=== PATIENT | male | born 1945 | race Caucasian/White ===

== ENCOUNTER 2019-06-27 16:00 | Observation (INO) ==
[2019-06-27] MEDS ORDERED: IOPAMIDOL 100 ML BOTTLE IV ONE (16:01)
[2019-06-27] MEDS ORDERED: 0.9 % SODIUM CHLORIDE 1,000 ML IV ONE (16:46)
[2019-06-27] MEDS ORDERED: ONDANSETRON 4 MG/2 ML VIAL IV ONE ×2 (16:46→18:28)
--- NOTE | 2019-06-27 16:51 | Emergency Department Note ---
GI Bleed HPI - General Chief complaint: Rectal Bleed Stated complaint: bleeding Time Seen by Provider: 06/27/19 16:12 Source: patient Mode of arrival: ambulatory Limitations: no limitations - History of Present Illness HPI Narrative: 74-year-old male patient presents emergency department with chief complaint of worsening left-sided flank and lower quadrant abdominal pain and black tarry stools. Patient tells me he woke up this morning with the pain. He had bowel movement this morning that looked as if there is blood in it. He was seen at [facility] around 1100 today for the symptoms. He tells me that the provider there did an exam and did a stool guaiac test that was positive. They did some blood work and recommended a CT scan for tomorrow. A review of the blood work from [facility] indicates a CBC showed WBC 9.3, RBC 5.07, hemoglobin 16.0, hematocrit 45.80, neutrophil percent 72.6 neutrophil #6.76. CMP sodium 132, chloride 94, anion gap 15.4, glucose 103, BUN 24, creatinine 1.03, GFR greater than 60, all others normal limits. Urinalysis showing clear yellow urine with specific gravity of 1.010 and pH 6.0. Negative all others. Patient tells me he came to the emergency department because the pain has signi ficantly worsened. He admits to nausea but no vomiting. He denies any fever, sweats, chills. He denies sinus congestion, runny nose, or cough. He denies shortness of breath. He denies retrosternal chest pain or palpitations. He denies gross hematochezia, hematemesis, or hematuria. He denies dysuria. He denies focal weakness. He admits to a past history of diverticulosis. A review of his active problems shows the following: Pharyngitis, sinusitis, hyponatremia, diverticulitis, hyperlipidemia, hypogonadism, and essential hypertension. Patient underwent right knee arthroplasty in March of this year. Unfortunately, in April he developed a surgical wound infection and had to undergo surgery again for debridement. - Related Data Home Medications Medication Instructions Recorded Confirmed Aspirin [Adult Low Dose Aspirin EC] 81 mg PO DAILY 10/02/16 07/08/17 Atorvastatin [Lipitor] 40 mg PO HS 10/02/16 07/08/17 Simvastatin [Zocor] 20 mg PO HS 10/02/16 07/08/17 carBAMazepine [TEGretol] 200 mg PO BID 10/02/16 07/08/17 Metoprolol Succinate [Toprol Xl] 50 mg PO DAILY 07/08/17 07/08/17 Testosterone Cypionate [Testone 200 mg IM .TWOWEEKS 07/08/17 07/08/17 Cik] Previous Rx's Medication Instructions Recorded Cefuroxime [Ceftin] 500 mg PO Q12 #28 tablet 10/16/16 Levofloxacin [Levaquin] 500 mg PO DAILY #10 tab 03/09/18 metroNIDAZOLE [Flagyl] 500 mg PO TID #30 tab 03/09/18 Allergies Allergy/AdvReac Type Severity Reaction Status Date / Time amlodipine [From [facility]] Allergy Intermediate COUGH, RASH Verified 06/27/19 16:08 lisinopril Allergy Swelling Verified 06/27/19 16:08 of Lip/Tongue/Throat Review of Systems All systems ED: reviewed and negative except as stated. Past Medical History - Past Medical History Medical history: Reports: arthritis, hyperlipidemia, hypertension, seizures, other (history of sleep apnea, hypogonadism) Psychiatric history: Reports: no psych history Surgical history ED: Reports: appendectomy, hip replacement, knee replacement, orthopedic, other (shoulder surgery), tonsillectomy - Social History smoking status: Former smoker Alcohol use: Reports: Occasionally (he states beers every other day) Drug use: Reports: none Physical Exam Limitations: no limitations General appearance: alert, in no apparent distress Head: atraumatic, normocephalic Eye: Present: normal appearance, PERRL, EOMI. Absent: scleral icterus, conjunctival injection ENT: Present: normal oropharynx, mucous membranes moist Neck: Present: trachea midline. Absent: lymphadenopathy, thyromegaly Chest: Present: symmetric chest wall rise Respiratory: Present: normal lung sounds bilaterally. Absent: respiratory distress, wheezes, stridor, accessory muscle use, prolonged expiratory phase Cardiovascular: Present: regular rate, normal rhythm. Absent: systolic murmur, diastolic murmur Abdominal: Present: soft, tenderness, guarding, rigidity, hyperactive bowel sounds. Absent: distention, rebound, organomegaly, mass Abdominal tenderness: Present: LUQ, LLQ, severe, other (Left flank pain.) Rectal: Present: normal inspection, normal rectal tone, heme (+) stool, black stool. Absent: normal prostate Extremities: Present: normal inspection, full ROM, normal capillary refill. Absent: pedal edema Back: Present: full ROM, CVA tenderness (L). Absent: tenderness, CVA tenderness (R) Neurological: Present: alert, oriented X3 Psychiatric: Present: normal affect, normal mood Skin: Present: warm, dry Course Course Narrative: Patient was brought into the emergency department and a history and physical e xam was performed. Saline lock was established and laboratory studies were drawn. CT scan of the abdomen/pelvis with contrast was ordered. Patient was given Zofran 4mg IVP for his nausea. Review of his laboratory studies show the following: CBC within normal limits. CMP sodium 127, chloride 90, all others in normal limits. CT scan of the abdomen/pelvis was read by the radiologist as negative study. Patient again complained of ongoing nausea was given repeat Zofran 4 mg IVP. After reviewing all the data the patient does have ongoing abdominal pain and guaiac positive stools. However, he has a stable H&H and no considerable finding on CT scan. I discussed the case with our general surgeon (Dr. Espitia) requesting his guidance about possible endoscopy for further work-up. At this time Dr. Espitia requested the patient be admitted to observation under his service. He recommended clear liquid diet, pain control, something for nausea, and that he would follow him closely in the morning. These holding orders will be placed by me. All further treatment decisions and modalities afterward will be carried out by . Patient remained stable throughout his entire time in the emergency department and is being admitted as mentioned. Vital Signs Temperature 97.9 F 06/27/19 16:05 Pulse Rate 97 H 06/27/19 16:05 Respiratory Rate 18 06/27/19 16:05 Blood Pressure 149/72 06/27/19 16:05 Pulse Oximetry (%) 100 06/27/19 16:05 Temperature 97.9 F 06/27/19 16:05 Pulse Rate 97 H 06/27/19 16:05 Respiratory Rate 18 06/27/19 16:05 Blood Pressure 149/72 06/27/19 16:05 Pulse Oximetry (%) 100 06/27/19 16:05 GI Bleed - Lab Data Lab results reviewed: Yes I reviewed the patient's lab results. Result diagrams: 06/27/19 16:54 06/27/19 16:54 Lab Results 06/27/19 06/27/19 Range/Units 16:54 16:54 WBC 8.4 (4.5-11.0) K/mcL RBC 4.63 (4.50-5.90) M/mcL Hgb 14.6 (13.5-16.5) g/dL Hct 43.3 (41.0-55.0) % MCV 93.6 (80.0-100.0) fL MCH 31.6 (26.0-34.0) pg MCHC 33.7 (31.0-36.0) g/dL RDW 12.9 (11.5-14.5) % Plt Count 255 (140-440) K/mcL MPV 7.5 (7.4-10.4) fL Gran % 77.7 (38.0-78.0) % Lymph % (Auto) 10.8 L (15.5-49.0) % Mobile % (Auto) 10.5 (1.0-12.0) % Eos % (Auto) 0.5 (0.0-7.0) % Baso % (Auto) 0.5 (0.0-2.0) % Gran # 6.5 (1.8-8.0) K/mcL Lymph # (Auto) 0.9 L (1.5-4.8) K/mcL Mobile # (Auto) 0.9 (0.1-0.9) K/mcL Eos # (Auto) 0 (0.0-0.7) K/mcL Baso # (Auto) 0 (0.0-0.3) K/mcL Sodium 127 L (133-145) mmol/L Potassium 4.7 (3.3-5.1) mmol/L Chloride 90 L (96-108) mmol/L Carbon Dioxide 24 (22-30) mmol/L Anion Gap 13.0 (8-16) BUN 23 (8-23) mg/dl Creatinine 0.9 (0.7-1.2) mg/dl GFR Calculation 83 Glucose 104 (70-105) mg/dL Calcium 9.2 (8.6-10.4) mg/dl Total Bilirubin 0.3 (0.0-1.0) mg/dL AST 17 (0-37) U/l ALT 17 (0-40) U/l Alkaline Phosphatase 69 (39-117) U/L Total Protein 6.8 (5.9-8.4) gm/dL Albumin 4.2 (3.2-5.2) gm/dL Globulin 2.6 (2.2-3.7) gm/dL Albumin/Globulin Ratio 1.6 (1.0-2.3) - Radiology Data Radiology results reviewed: Yes I reviewed the patient's radiology results. CT scan read by the radiologist as a negative study. Disposition Pt seen by HOUSING OFFICER/PA only: Yes Clinical Impression: GI bleed, Hyponatremia Disposition: Xfer As Outpt/Obs ([facility]) Condition: Fair Additional Instructions: Patient is being admitted to observation in the hospital under the care of Dr. Espitia (general surgeon). I will place the holding orders and then all further treatment decisions and modalities will be carried out by Dr. Espitia. Referrals: Chad Mahoney DO [Primary Care Provider] - Time of Disposition: 19:14
[2019-06-27 17:21] LABS: Basophils # (Auto) 0 K/mcL (0.0-0.3); Basophils % (Auto) 0.5 % (0.0-2.0); Eosinophils # (Auto) 0 K/mcL (0.0-0.7); Eosinophils % (Auto) 0.5 % (0.0-7.0); Granulocytes % (Auto) 77.7 % (38.0-78.0); Hematocrit 43.3 % (41.0-55.0); Hemoglobin 14.6 g/dL (13.5-16.5); Lymphocytes # (Auto) 0.9 K/mcL (1.5-4.8); Lymphocytes % (Auto) 10.8 % (15.5-49.0); Mean Cell Volume 93.6 fL (80.0-100.0); Mean Corpuscular HGB Conc 33.7 g/dL (31.0-36.0); Mean Platelet Volume 7.5 fL (7.4-10.4); Monocytes # (Auto) 0.9 K/mcL (0.1-0.9); Monocytes % (Auto) 10.5 % (1.0-12.0); Platelet Count 255 K/mcL (140-440); RBC 4.63 M/mcL (4.50-5.90); Red Cell Distribution Width 12.9 % (11.5-14.5); WBC 8.4 K/mcL (4.5-11.0)
[2019-06-27 17:52] LABS: ALT/SGPT 17 U/l (0-40); AST/SGOT 17 U/l (0-37); Albumin 4.2 gm/dL (3.2-5.2); Albumin/Globulin Ratio 1.6 (1.0-2.3); Alkaline Phosphatase 69 U/L (39-117); Bilirubin,Total 0.3 mg/dL (0.0-1.0); Blood Urea Nitrogen 23 mg/dl (8-23); Calcium 9.2 mg/dl (8.6-10.4); Carbon Dioxide 24 mmol/L (22-30); Globulin 2.6 gm/dL (2.2-3.7); Glomerular Filtration Rate 83; Glucose 104 mg/dL (70-105)
[2019-06-27 18:02] LABS: Chloride 90 mmol/L (96-108)
[2019-06-27] MEDS ORDERED: ACETAMINOPHEN 325 MG TABLET PO PRN (19:14)
--- NOTE | 2019-06-27 20:33 | Cat Scan Report ---
CLINICAL INFORMATION: Left-sided abdominal pain. Gastrointestinal bleeding COMPARISON: Previous CT scans dated 03/09/2018, 02/21/2013, 02/10/2013 TECHNIQUE: Axial images were obtained through the abdomen and pelvis. Sagittally and coronally reformatted images. 80 mL Isovue 370 injected intravenously. Oral contrast material was not administered FINDINGS: Lung bases:Negative. No pulmonary parenchymal infiltrate or mass. No focal abnormality. There is no pleural fluid. No pericardial fluid. There is coronary artery calcification with calcified plaque in the left main and left anterior descending coronary arteries. Liver:No significant abnormality. There are 2 low-density abnormalities which appear benign. These measure 6 mm and 9 mm. These are probably small cysts. No other focal intrahepatic abnormality. Liver contour is smooth. There is no ascites Gallbladder, billary:Negative gallbladder. No calcified gallstones. No gallbladder wall thickening. No intra or extrahepatic bile duct dilatation Spleen:Negative. No splenomegaly. Normal enhancement splenic and portal vein Pancreas:Negative. No pancreatic mass. No peripancreatic abnormality. Adrenal glands:Negative Kidneys, ureters, bladder:Negative kidneys. No hydronephrosis. No solid or cystic mass. No calculi. No hydroureter. No ureteral stone. No bladder calculus Gastrointestinal:Extensive sigmoid diverticulosis. No diverticulitis. No detectable colonic mass. Negative examination for appendicitis. Patient apparently has gastrointestinal bleeding. There is no contrast extravasation within the colon. No contrast pooling. Small bowel is negative. No mechanical small bowel obstruction. Vascular:There is calcified atherosclerotic plaque in the abdominal aorta and common iliac arteries. No abdominal aortic aneurysm. There is calcified plaque at the origin of the superior mesenteric artery and celiac trunk. No evidence for stenosis. There is calcification at the origin of both renal arteries. Stenosis is possible. Lymphatic:No retroperitoneal or mesenteric adenopathy. No inguinal adenopathy Mesentery, peritoneum:No free intraperitoneal fluid. No intra-abdominal abscess Reproductive:Prostate is not significantly enlarged Musculoskeletal:Severe multilevel degenerative disc disease. There is L5-S1 spondylolisthesis and bilateral spondylolysis. No sacral or pelvic fracture. Right hip is negative. Previous left total hip arthroplasty. Examination was initially interpreted by [facility] IMPRESSION: 1. Extensive diverticulosis. No evidence for diverticulitis. No detectable colonic mass or active hemorrhage 2. Atherosclerotic disease including calcified coronary artery disease 3. Multilevel degenerative disc disease. L5 spondylolysis and L5-S1 spondylolisthesis The exam was performed using radiation dose optimization techniques including, but not limited to, automated exposure control, adjustment of the mA and/or kV according to patient size and use of iterative reconstruction technique. Interpreted and Authenticated by: Jignesh Fishman 06/27/19
[2019-06-27] MEDS: ONDANSETRON 4 MG/2 ML VIAL IV PRN (21:57)
[2019-06-27] MEDS: HYDROmorphone 2 MG/ML VIAL IV PRN (21:57)
[2019-06-27] MEDS: 0.9 % SODIUM CHLORIDE 10 ML SYRINGE IV SCH (21:58)
--- NOTE | 2019-06-28 00:50 | Emergency Department Note ---
ED Note Addendum Note Addendum: I reviewed this case of John Castro PA-C. I agree with his evaluation management documentation. I did not see this patient personally but I did discuss management with him and agree with decision to admit and consult Dr. Espitia
[2019-06-28] MEDS: HYDROmorphone 2 MG/ML VIAL IV PRN ×6 (01:31→20:27)
[2019-06-28] MEDS: ONDANSETRON 4 MG/2 ML VIAL IV PRN (04:16)
[2019-06-28 05:19] LABS: Basophils # (Auto) 0 K/mcL (0.0-0.3); Basophils % (Auto) 0.3 % (0.0-2.0); Eosinophils # (Auto) 0 K/mcL (0.0-0.7); Eosinophils % (Auto) 0.4 % (0.0-7.0); Hemoglobin 12.8 g/dL (13.5-16.5); Lymphocytes # (Auto) 0.8 K/mcL (1.5-4.8); Lymphocytes % (Auto) 11.7 % (15.5-49.0); Mean Cell Volume 94.9 fL (80.0-100.0); Mean Corpuscular HGB Conc 33.6 g/dL (31.0-36.0); Mean Platelet Volume 7.5 fL (7.4-10.4); Monocytes # (Auto) 0.7 K/mcL (0.1-0.9); Monocytes % (Auto) 10.6 % (1.0-12.0); Platelet Count 221 K/mcL (140-440); Red Cell Distribution Width 13.5 % (11.5-14.5); WBC 7.1 K/mcL (4.5-11.0)
[2019-06-28] MEDS: 0.9 % SODIUM CHLORIDE 10 ML SYRINGE IV SCH ×3 (06:01→20:28)
--- NOTE | 2019-06-28 12:24 | General Surg History&Physical ---
History of Present Illness Patient information: Note initiated : 06/28/19 at 12:21 pm Service Date, if different from initiated Date: [] Patient: Talha Suarez 74 y/o M admitted on 06/27/19 for bleeding. Chief Complaint: [] HPI: Mr. Suarez is a 74 year old M with upper GI bleed. The patient states that he has a 4 day history of feeling weak. He also felt left flank pain with nausea but no vomiting. Yesterday he had had bowel movements. He has not had bright red rectal bleeding. He does have pain in the midabdomen quadrant. The patient states that for many months. He's been using ibuprofen up to 3 times daily daily (. rectal exam reveals black stool which is strongly guaiac positive. Patient is counseled for upper endoscopy. Review of Systems All systems PM: reviewed and no additional remarkable complaints except as stated (negative except as noted below) - Constitutional fatigue, lethargy, weakness - Respiratory cough, dyspnea on exertion, snoring - Gastrointestinal abdominal pain, melena, nausea - Musculoskeletal arthralgias, back pain - Hematologic/Lymphatic no easy bleeding, no easy bruising, no lymphadenopathy - Allergic/Immunologic no tongue swelling, no throat swelling, no uticaria, no wheezing, no lip swelling Past History Past medical history: History , petit mal seizures remote Hypertension. Sleep apnea with use Hyponatremia. History of diverticulitis Past surgical history: Appendectomy. Left total hip arthroplasty. Right total shoulder arthroplasty. Right total knee arthroplasty Past family history: C stage LXVII due to lymphoma. Mother due to complications of early Alzheimer's disease a 67 Past social history: Former smoker. Drinks an occasional beer. Denies drug use Medications and Allergies Home Medications Medication Instructions Recorded Confirmed Type Simvastatin [Zocor] 40 mg PO HS 10/02/16 06/27/19 History carBAMazepine [TEGretol] 200 mg PO BID 10/02/16 06/27/19 History Testosterone Cypionate [Testone 200 mg IM .TWOWEEKS 07/08/17 06/28/19 History Cik] Furosemide [Lasix] 40 mg PO DAILY 06/27/19 06/27/19 History Irbesartan [Avapro] 300 mg PO QDAY 06/27/19 06/27/19 History Allergies Allergy/AdvReac Type Severity Reaction Status Date / Time lisinopril Allergy Severe Swelling Verified 06/27/19 21:02 of Lip/Tongue/Throat amlodipine [From [facility]] AdvReac Mild COUGH, RASH Verified 06/27/19 21:02 Exam Temp Pulse Resp BP Pulse Ox 97.9 F 68 18 119/66 97 06/28/19 11:49 06/28/19 07:50 06/28/19 11:49 06/28/19 11:49 06/28/19 11:49 - General physical appearance well developed, well nourished, no distress - Eyes PERRL, normal ocular movement - ENT normal pinna, normal nares, normal mucosa, no congestion, decreased hearing, dentures, other (patient wears bilateral hearing aids) - Head Head exam IM: Present: atraumatic, normocephalic - Neck no masses, no bruits, trachea midline, no lymphadenopathy, no venous distension - Cardiovascular Cardiovascular exam IM: Present: normal rate and rhythm - Respiratory normal expansion, normal respiratory effort, clear to percussion, clear to auscultation - Abdomen Abdomen: Present: soft, tender (midepigastric abdominal tenderness; left upper quadrant), bowel sounds Hernia: Present: none - Genitourinary Present: normal penis with no external lesions - Integumentary Present: no rash, no growths, no abnormal pigmentation - Neurologic Present: normal coordination, normal sensation - Musculoskeletal Present: normal gait, normal posture - Psychiatric Present: oriented to time, oriented to person, oriented to place, speech is normal, memory intact Assessment and Plan (1) Upper gastrointestinal bleeding Patient is seen for upper endoscopy. It will be done as soon as possible Status: Acute (2) Hypertension Status: Acute (3) Obstructive sleep apnea (adult) (pediatric) Status: Acute (4) Hyponatremia Status: Acute
[2019-06-28] MEDS ORDERED: ESOMEPRAZOLE 40 MG VIAL IV SCH (12:30)
[2019-06-28] MEDS ORDERED: ONDANSETRON 4 MG/2 ML VIAL IV PRN ×3 (12:56→13:51)
[2019-06-28] MEDS ORDERED: IPRATROPIUM/ALBUTEROL 3 ML AMPUL.NEB NEB PRN ×2 (12:56→13:51)
[2019-06-28] MEDS ORDERED: PROPOFOL 200 MG/20 ML VIAL IV ONE (12:59)
[2019-06-28] MEDS ORDERED: MIDAZOLAM 2 MG/2 ML VIAL IV ONE (12:59)
[2019-06-28] MEDS ORDERED: KETAMINE 100 MG/ML ML IV ONE (12:59)
[2019-06-28] MEDS ORDERED: LACTATED RINGERS 1,000 ML IV SCH ×2 (13:00→13:51)
--- NOTE | 2019-06-28 13:30 | Brief Operative Note ---
Date of procedure: 06/28/19 Pre-op diagnosis: upper G I BLEEDING Post-op diagnosis: other (ACUTE EROSIVE GASTRITIS;MULTIPLE GASTRIC AND DUODENAL ULCERS) Procedure: EGD WITH PRIYANKA TEST Grafts/Implants: No Anesthesia: none (GENERAL) Findings: DIFFUSE INFLAMMATION OF STOMACH WITH MULTIPLE GASTRIC EROSIONS AND 3 MODERATE SIZED GASTRIC ULCERS ACUTE SEVERE DUODENITIS WITH MULTIPLE MODERATE SIZED DUODENAL ULCERS AND SINGLE GIANT DUODENAL ULCER WITH HEMORRHAGIC BASE BUT NO ACTIVE BLEEDING PARTIAL OBSTRUCTION OF DUODENAL BULB DUE TO GIANT ULCER SECOND PORTION OF DUODENUM IS NORMAL NO ACTIVE BLEEDING Complications: none Surgeon: Wilson Espitia Specimens Removed/Pathology: other (ANTRAL BIOPSIES FOR PRIYANKA TEST) Condition: stable Disposition: PACU
[2019-06-28] MEDS ORDERED: ACETAMINOPHEN 325 MG TABLET PO PRN (13:51)
[2019-06-28] MEDS: ESOMEPRAZOLE 40 MG VIAL IV SCH ×2 (16:01→23:10)
[2019-06-28] MEDS: SUCRALFATE 1 GM/10 ML ORAL.SUSP PO SCH ×2 (18:08→23:05)
[2019-06-28] MEDS: carBAMazepine 200 MG TABLET PO SCH (20:27)
[2019-06-28] MEDS ORDERED: carBAMazepine 200 MG TABLET PO SCH (21:00)
[2019-06-29] MEDS: 0.9 % SODIUM CHLORIDE 10 ML SYRINGE IV SCH ×3 (04:27→21:38)
[2019-06-29] MEDS: SUCRALFATE 1 GM/10 ML ORAL.SUSP PO SCH ×4 (05:23→23:35)
[2019-06-29 06:33] LABS: Basophils # (Auto) 0 K/mcL (0.0-0.3); Basophils % (Auto) 0.7 % (0.0-2.0); Eosinophils # (Auto) 0.2 K/mcL (0.0-0.7); Granulocytes % (Auto) 71.3 % (38.0-78.0); Hematocrit 33.7 % (41.0-55.0); Hemoglobin 11.6 g/dL (13.5-16.5); Lymphocytes % (Auto) 15.3 % (15.5-49.0); Mean Cell Volume 94.6 fL (80.0-100.0); Mean Corpuscular HGB Conc 34.4 g/dL (31.0-36.0); Mean Platelet Volume 7.7 fL (7.4-10.4); Monocytes # (Auto) 0.6 K/mcL (0.1-0.9); Monocytes % (Auto) 9.7 % (1.0-12.0); Platelet Count 176 K/mcL (140-440); RBC 3.56 M/mcL (4.50-5.90); Red Cell Distribution Width 12.9 % (11.5-14.5); WBC 6.7 K/mcL (4.5-11.0)
[2019-06-29 07:16] LABS: ALT/SGPT 16 U/l (0-40); AST/SGOT 16 U/l (0-37); Albumin 3.6 gm/dL (3.2-5.2); Albumin/Globulin Ratio 1.9 (1.0-2.3); Alkaline Phosphatase 57 U/L (39-117); Bilirubin,Direct < 0.2 mg/dL (0.0-0.3); Bilirubin,Total 0.3 mg/dL (0.0-1.0); Blood Urea Nitrogen 10 mg/dl (8-23); Calcium 8.5 mg/dl (8.6-10.4); Carbon Dioxide 25 mmol/L (22-30); Globulin 1.9 gm/dL (2.2-3.7); Glomerular Filtration Rate 92; Glucose 91 mg/dL (70-105); Lactate Dehydrogenase 137 U/L (94-250); Phosphorous 2.4 mg/dL (2.7-4.5); Triglycerides 106 mg/dl (<150); Uric Acid 5.1 mg/dL (2.5-8.0)
[2019-06-29 07:27] LABS: Chloride 94 mmol/L (96-108)
[2019-06-29] MEDS: carBAMazepine 200 MG TABLET PO SCH ×2 (08:41→20:43)
[2019-06-29] MEDS: HYDROmorphone 2 MG/ML VIAL IV PRN ×2 (08:42→15:52)
[2019-06-29] MEDS: LOSARTAN 50 MG TABLET PO SCH (08:42)
[2019-06-29] MEDS: FUROSEMIDE 40 MG TABLET PO SCH (08:42)
[2019-06-29] MEDS ORDERED: FUROSEMIDE 40 MG TABLET PO SCH (09:00)
[2019-06-29] MEDS ORDERED: IRBESARTAN 300 MG PO SCH (09:00)
[2019-06-29] MEDS: ESOMEPRAZOLE 40 MG VIAL IV SCH (10:28)
--- NOTE | 2019-06-29 12:52 | General Surgery Progress Note ---
Subjective Patient reports: feels better, tolerating liquids well, flatus, bowel movement, afebrile Narrative: Note initiated : 06/29/19 at 12:50 pm Service Date, if different from initiated Date: [] Patient: Talha Suarez 74 y/o M admitted on 06/27/19 for bleeding. Chief Complaint: [patient is well. He denies abdominal pain. He had one black stool since yesterday. His hemoglobin is slightly valve 11.6. He does not have any nausea. White count 6.7, hematocrit 33.7, sodium 129, potassium 4.3] Objective Temp Pulse Resp BP Pulse Ox 98.0 F 74 20 130/69 96 06/29/19 11:30 06/29/19 11:30 06/29/19 11:30 06/29/19 11:30 06/29/19 11:30 - Additional Data Intake & Output - Last 24 hours: Intake & Output 06/27/19 06/28/19 06/29/19 06/30/19 05:59 05:59 05:59 05:59 Intake Total 1120 840 480 Output Total 700 1175 450 Balance 420 -335 30 Weight 234 lb 234 lb - General physical appearance well developed, well nourished, no distress - Eyes PERRL, normal ocular movement - ENT normal pinna, normal nares, normal mucosa, no hearing loss, no congestion - Neck no masses, no bruits, trachea midline, no lymphadenopathy, no venous distension - Respiratory normal expansion, normal respiratory effort, clear to auscultation - Cardiovascular Cardiovascular exam: Present: normal rate and rhythm, RRR, +S1, +S2. Absent: JVD, tachycardia - Abdomen non tender, bowel sounds (present), surgical scars (none), masses (none) - Integumentary no rash, no growths, no abnormal pigmentation - Neurologic normal coordination, normal sensation - Musculoskeletal normal gait, normal posture - Psychiatric oriented to time, oriented to person, oriented to place, speech is normal, memory intact - Labs 06/29/19 04:10 06/29/19 04:10 Diabetes panel 06/29/19 Range/Units 04:10 Sodium 129 L (133-145) mmol/L Potassium 4.3 (3.3-5.1) mmol/L Chloride 94 L (96-108) mmol/L Carbon Dioxide 25 (22-30) mmol/L BUN 10 (8-23) mg/dl Creatinine 0.7 (0.7-1.2) mg/dl Glucose 91 (70-105) mg/dL Calcium 8.5 L (8.6-10.4) mg/dl AST 16 (0-37) U/l ALT 16 (0-40) U/l Alkaline Phosphatase 57 (39-117) U/L Total Protein 5.5 L (5.9-8.4) gm/dL Albumin 3.6 (3.2-5.2) gm/dL Triglycerides 106 (<150) mg/dl Calcium panel 06/29/19 Range/Units 04:10 Calcium 8.5 L (8.6-10.4) mg/dl Phosphorus 2.4 L (2.7-4.5) mg/dL Albumin 3.6 (3.2-5.2) gm/dL Pituitary panel 06/29/19 Range/Units 04:10 Sodium 129 L (133-145) mmol/L Potassium 4.3 (3.3-5.1) mmol/L Chloride 94 L (96-108) mmol/L Carbon Dioxide 25 (22-30) mmol/L BUN 10 (8-23) mg/dl Creatinine 0.7 (0.7-1.2) mg/dl Glucose 91 (70-105) mg/dL Calcium 8.5 L (8.6-10.4) mg/dl Adrenal panel 06/29/19 Range/Units 04:10 Sodium 129 L (133-145) mmol/L Potassium 4.3 (3.3-5.1) mmol/L Chloride 94 L (96-108) mmol/L Carbon Dioxide 25 (22-30) mmol/L BUN 10 (8-23) mg/dl Creatinine 0.7 (0.7-1.2) mg/dl Glucose 91 (70-105) mg/dL Calcium 8.5 L (8.6-10.4) mg/dl Total Bilirubin 0.3 (0.0-1.0) mg/dL AST 16 (0-37) U/l ALT 16 (0-40) U/l Alkaline Phosphatase 57 (39-117) U/L Total Protein 5.5 L (5.9-8.4) gm/dL Albumin 3.6 (3.2-5.2) gm/dL Assessment and Plan (1) Upper gastrointestinal bleeding Status: Acute Current Visit: Yes (2) Hypertension Status: Acute Current Visit: Yes (3) Obstructive sleep apnea (adult) (pediatric) Status: Acute Current Visit: Yes (4) Hyponatremia Status: Acute Current Visit: Yes - Time Spent With Patient Total time spent is greater than 50% in coordination of care (as documented) at patient's floor/unit and/or counseling patient:
[2019-06-29] MEDS: PANTOPRAZOLE 40 MG VIAL IV SCH (21:39)
[2019-06-30] MEDS: 0.9 % SODIUM CHLORIDE 10 ML SYRINGE IV SCH ×3 (05:55→20:33)
[2019-06-30] MEDS: SUCRALFATE 1 GM/10 ML ORAL.SUSP PO SCH ×4 (05:55→23:33)
[2019-06-30 06:13] LABS: Basophils # (Auto) 0 K/mcL (0.0-0.3); Basophils % (Auto) 0.8 % (0.0-2.0); Eosinophils # (Auto) 0.2 K/mcL (0.0-0.7); Eosinophils % (Auto) 3.2 % (0.0-7.0); Granulocytes % (Auto) 70.3 % (38.0-78.0); Hematocrit 34.6 % (41.0-55.0); Hemoglobin 11.8 g/dL (13.5-16.5); Lymphocytes # (Auto) 0.9 K/mcL (1.5-4.8); Lymphocytes % (Auto) 14.2 % (15.5-49.0); Mean Cell Volume 95.1 fL (80.0-100.0); Mean Corpuscular HGB Conc 34.1 g/dL (31.0-36.0); Mean Platelet Volume 7.8 fL (7.4-10.4); Monocytes # (Auto) 0.7 K/mcL (0.1-0.9); Monocytes % (Auto) 11.5 % (1.0-12.0); Platelet Count 181 K/mcL (140-440); RBC 3.64 M/mcL (4.50-5.90); Red Cell Distribution Width 13.2 % (11.5-14.5); WBC 6.4 K/mcL (4.5-11.0)
[2019-06-30 06:45] LABS: ALT/SGPT 17 U/l (0-40); AST/SGOT 16 U/l (0-37); Albumin 3.6 gm/dL (3.2-5.2); Albumin/Globulin Ratio 1.7 (1.0-2.3); Alkaline Phosphatase 65 U/L (39-117); Bilirubin,Direct < 0.2 mg/dL (0.0-0.3); Bilirubin,Total 0.3 mg/dL (0.0-1.0); Blood Urea Nitrogen 7 mg/dl (8-23); Calcium 8.5 mg/dl (8.6-10.4); Carbon Dioxide 26 mmol/L (22-30); Chloride 92 mmol/L (96-108); Globulin 2.1 gm/dL (2.2-3.7); Glomerular Filtration Rate 92; Glucose 90 mg/dL (70-105); Lactate Dehydrogenase 123 U/L (94-250); Phosphorous 2.7 mg/dL (2.7-4.5); Triglycerides 96 mg/dl (<150); Uric Acid 5.2 mg/dL (2.5-8.0)
[2019-06-30] MEDS: PANTOPRAZOLE 40 MG VIAL IV SCH ×2 (07:10→17:11)
[2019-06-30] MEDS: carBAMazepine 200 MG TABLET PO SCH ×2 (08:27→20:33)
[2019-06-30] MEDS: FUROSEMIDE 40 MG TABLET PO SCH (08:27)
[2019-06-30] MEDS: LOSARTAN 50 MG TABLET PO SCH (08:27)
[2019-06-30] MEDS: HYDROmorphone 2 MG/ML VIAL IV PRN (12:23)
--- NOTE | 2019-06-30 14:28 | General Surgery Progress Note ---
Subjective Patient reports: feels better ( ), still having pain, tolerating liquids well, flatus, no bowel movement, afebrile Narrative: Note initiated : 06/30/19 at 2:26 pm Service Date, if different from initiated Date: [] Patient: Talha Suarez 74 y/o M admitted on 06/27/19 for bleeding. Chief Complaint: [patient had left upper quadrant and left flank pain with nausea but no vomiting. He has not had bowel movements since yesterday. White count 6.4, hemoglobin 11.8, hematocrit 34.6, sodium 129, potassium 3.5] Objective Temp Pulse Resp BP Pulse Ox 98.7 F 63 16 106/65 96 06/30/19 12:00 06/30/19 12:00 06/30/19 12:00 06/30/19 12:00 06/30/19 12:00 - Additional Data Intake & Output - Last 24 hours: Intake & Output 06/28/19 06/29/19 06/30/19 07/01/19 05:59 05:59 05:59 05:59 Intake Total 2199 707 0355 300 Output Total 700 1175 450 Balance 420 -335 1430 300 Weight 234 lb 234 lb 234 lb - General physical appearance well developed, well nourished, no distress, moderate pain - Eyes PERRL, normal ocular movement - ENT normal pinna, normal nares, normal mucosa, no congestion, decreased hearing - Neck no masses, no bruits, trachea midline, no lymphadenopathy, no venous distension - Respiratory normal expansion, normal respiratory effort, clear to auscultation - Cardiovascular Cardiovascular exam: Present: normal rate and rhythm, RRR, +S1, +S2. Absent: JVD, tachycardia - Abdomen tender (moderate Tenderness to palpation in left upper quadrant and epigastrium; good active bowel sounds), bowel sounds (present), surgical scars (none), masses (none) - Integumentary no rash, no growths, no abnormal pigmentation - Neurologic normal coordination, normal sensation - Musculoskeletal normal gait, normal posture - Psychiatric oriented to time, oriented to person, oriented to place, speech is normal, memory intact - Labs 06/30/19 04:20 06/30/19 04:20 Diabetes panel 06/30/19 Range/Units 04:20 Sodium 129 L (133-145) mmol/L Potassium 3.5 (3.3-5.1) mmol/L Chloride 92 L (96-108) mmol/L Carbon Dioxide 26 (22-30) mmol/L BUN 7 L (8-23) mg/dl Creatinine 0.7 (0.7-1.2) mg/dl Glucose 90 (70-105) mg/dL Calcium 8.5 L (8.6-10.4) mg/dl AST 16 (0-37) U/l ALT 17 (0-40) U/l Alkaline Phosphatase 65 (39-117) U/L Total Protein 5.7 L (5.9-8.4) gm/dL Albumin 3.6 (3.2-5.2) gm/dL Triglycerides 96 (<150) mg/dl Calcium panel 06/30/19 Range/Units 04:20 Calcium 8.5 L (8.6-10.4) mg/dl Phosphorus 2.7 (2.7-4.5) mg/dL Albumin 3.6 (3.2-5.2) gm/dL Pituitary panel 06/30/19 Range/Units 04:20 Sodium 129 L (133-145) mmol/L Potassium 3.5 (3.3-5.1) mmol/L Chloride 92 L (96-108) mmol/L Carbon Dioxide 26 (22-30) mmol/L BUN 7 L (8-23) mg/dl Creatinine 0.7 (0.7-1.2) mg/dl Glucose 90 (70-105) mg/dL Calcium 8.5 L (8.6-10.4) mg/dl Adrenal panel 06/30/19 Range/Units 04:20 Sodium 129 L (133-145) mmol/L Potassium 3.5 (3.3-5.1) mmol/L Chloride 92 L (96-108) mmol/L Carbon Dioxide 26 (22-30) mmol/L BUN 7 L (8-23) mg/dl Creatinine 0.7 (0.7-1.2) mg/dl Glucose 90 (70-105) mg/dL Calcium 8.5 L (8.6-10.4) mg/dl Total Bilirubin 0.3 (0.0-1.0) mg/dL AST 16 (0-37) U/l ALT 17 (0-40) U/l Alkaline Phosphatase 65 (39-117) U/L Total Protein 5.7 L (5.9-8.4) gm/dL Albumin 3.6 (3.2-5.2) gm/dL Assessment and Plan (1) Upper gastrointestinal bleeding Status: Acute Assessment and plan: Patient appears to be clinically stable without bleeding. However, he is having significant pain. He denies nausea. He has not had any further melena and his hemoglobin is stable. We will delay discharge until tomorrow to make sure he is not having ongoing bleeding. Current Visit: Yes (2) Hypertension Status: Acute Current Visit: Yes (3) Obstructive sleep apnea (adult) (pediatric) Status: Acute Current Visit: Yes (4) Hyponatremia Status: Acute Current Visit: Yes - Time Spent With Patient Total time spent is greater than 50% in coordination of care (as documented) at patient's floor/unit and/or counseling patient:
[2019-07-01] MEDS: SUCRALFATE 1 GM/10 ML ORAL.SUSP PO SCH ×2 (05:54→11:20)
[2019-07-01] MEDS: 0.9 % SODIUM CHLORIDE 10 ML SYRINGE IV SCH ×2 (05:54→14:16)
[2019-07-01] MEDS: PANTOPRAZOLE 40 MG VIAL IV SCH (07:32)
[2019-07-01] MEDS: carBAMazepine 200 MG TABLET PO SCH (08:47)
[2019-07-01] MEDS: FUROSEMIDE 40 MG TABLET PO SCH (08:47)
[2019-07-01] MEDS: LOSARTAN 50 MG TABLET PO SCH (08:48)
--- NOTE | 2019-07-01 13:09 | Discharge Summary ---
Providers - Providers Patient information: Note initiated : 07/01/19 at 1:04 pm Service Date, if different from initiated Date: [] Patient: Talha Suarez 74 y/o M admitted on 06/27/19 for bleeding. Chief Complaint: [] Date of admission: 06/27/19 Discharge date: 07/01/19 Attending physician: Wilson Espitia Hospitalization Hospital Course: 74-year-old male with history of midabdominal discomfort and weakness with black bowel movements. Patient has a history of long-term use of nonsteroidal anti- inflammatory drugs on a daily basis. He was admitted and scheduled for upper endoscopy. His hemoglobin dropped from 14-11. Endoscopy revealed diffuse erosive gastritis with gastric and duodenal ulcer with a large crater ulcer of the duodenal bulb, causing partial duodenal obstruction. At the time of endoscopy. He had old organizing clot in the base of the ulcer but no evidence of active bleeding. He was treated with pantoprazole and Carafate for the past 3 days and has done well. He has some pain and nausea yesterday but is asymptomatic today. Patient is stable for discharge home . Discharge diagnosis: upper GI bleeding Secondary discharge diagnosis: Gastric and duodenal ulcers. Partial duodenal obstruction due to duodenal ulcer. Erosive gastritis. Hemorrhagic anemia Reason for admission: upper GI bleeding Procedures: Esophagogastroduodenoscopy Pertinent studies/significant findings: None Complications: None Exam Temp Pulse Resp BP Pulse Ox 98.4 F 81 16 156/72 98 07/01/19 12:00 07/01/19 12:00 07/01/19 12:00 07/01/19 12:00 07/01/19 12:00 - General physical appearance well developed, well nourished, no distress - Eyes PERRL, normal ocular movement - ENT normal pinna, normal nares, normal mucosa, no hearing loss, no congestion - Head Head exam IM: Present: atraumatic, normocephalic - Neck no masses, no bruits, trachea midline, no lymphadenopathy, no venous distension - Cardiovascular Cardiovascular exam IM: Present: normal rate and rhythm - Respiratory normal expansion, normal respiratory effort, clear to percussion, clear to auscultation - Abdomen Abdomen: Present: soft, tender (mild tenderness left upper quadrant), bowel sounds, distended ( mild abdominal distention) Hernia: Present: none - Genitourinary Present: normal penis with no external lesions - Integumentary Present: no rash, no growths, no abnormal pigmentation - Neurologic Present: normal coordination, normal sensation - Musculoskeletal Present: normal gait, normal posture - Psychiatric Present: oriented to time, oriented to person, oriented to place, speech is normal, memory intact Discharge Plan - Patient/Caregiver Discharge Instructions Activity: increase activity as tolerated Diet: Regular Diet Additional Instructions: Patient is being admitted to observation in the hospital under the care of Dr. Espitia (general surgeon). I will place the holding orders and then all further treatment decisions and modalities will be carried out by Dr. Espitia. Prescriptions: Sucralfate [Carafate] 1 gm PT Q6 #240 oral.susp Transmission Status: Pending to [facility] # 103 - Follow up Plan Follow up with: Chad Mahoney DO [Primary Care Provider] - Wilson Espitia MD [Physician] - (Follow up in the office in 1 month) Disposition: Home, Self-Care Prognosis: Good Rehab Potential: Good I certify that the patient requires SNF services.: No Overall status at discharge: patient is progressing back to baseline Pending Studies Resuscitation Status Full Code Diet Regular Diet Start MonJun 30 934 Carbamazepine (Tegretol) 200 mg PO BID [facility] Last Admin: 07/01/19 08:47 Dose: 200 mg Documented by: Admin: 06/30/19 20:33 Dose: 200 mg Documented by: Admin: 06/30/19 08:27 Dose: 200 mg Documented by: Admin: 06/29/19 20:43 Dose: 200 mg Documented by: Admin: 06/29/19 08:41 Dose: 200 mg Documented by: [email or web address] Admin: 06/28/19 20:27 Dose: 200 mg Documented by: ABBE Furosemide (Lasix) 40 mg PO DAILY [facility] Last Admin: 07/01/19 08:47 Dose: 40 mg Documented by: Admin: 06/30/19 08:27 Dose: 40 mg Documented by: Admin: 06/29/19 08:42 Dose: 40 mg Documented by: ARDEN Hydromorphone HCl (Dilaudid) 0.5 mg IV Q2HP PRN; Protocol PRN Reason: Per Pain Protocol Last Admin: 06/30/19 12:23 Dose: 0.5 mg Documented by: Admin: 06/29/19 15:52 Dose: 0.5 mg Documented by: Admin: 06/29/19 08:42 Dose: 0.5 mg Documented by: Admin: 06/28/19 20:27 Dose: 0.5 mg Documented by: Admin: 06/28/19 16:01 Dose: 0.5 mg Documented by: ARDEN Losartan Potassium (Cozaar) 100 mg PO DAILY [facility] Last Admin: 07/01/19 08:48 Dose: 100 mg Documented by: Admin: 06/30/19 08:27 Dose: 100 mg Documented by: Admin: 06/29/19 08:42 Dose: 100 mg Documented by: ARDEN Ondansetron HCl (Zofran) 4 mg IV Q6HP PRN PRN Reason: Nausea And Vomiting Last Admin: 06/28/19 20:28 Dose: 4 mg Documented by: ABBE Pantoprazole Sodium (Protonix) 40 mg IV BIDAC [facility] Last Admin: 07/01/19 07:32 Dose: 40 mg Documented by: Admin: 06/30/19 17:11 Dose: 40 mg Documented by: Admin: 06/30/19 07:10 Dose: 40 mg Documented by: Admin: 06/29/19 21:39 Dose: 40 mg Documented by: VAUGHN Sodium Chloride (Saline Flush) 10 ml IV Q8 [facility] Last Admin: 07/01/19 05:54 Dose: 10 ml Documented by: Admin: 06/30/19 20:33 Dose: 10 ml Documented by: Admin: 06/30/19 15:07 Dose: 10 ml Documented by: Admin: 06/30/19 05:55 Dose: 10 ml Documented by: Admin: 06/29/19 21:38 Dose: 10 ml Documented by: Admin: 06/29/19 15:52 Dose: 10 ml Documented by: Admin: 06/29/19 04:27 Dose: 10 ml Documented by: Admin: 06/28/19 20:28 Dose: 10 ml Documented by: Admin: 06/28/19 14:30 Dose: Not Given Documented by: ARDEN Sucralfate (Carafate) 1 gm PO Q6 [facility] Last Admin: 07/01/19 11:20 Dose: 1 gm Documented by: Admin: 07/01/19 05:54 Dose: 1 gm Documented by: Admin: 06/30/19 23:33 Dose: 1 gm Documented by: Admin: 06/30/19 18:07 Dose: 1 gm Documented by: Admin: 06/30/19 12:16 Dose: 1 gm Documented by: Admin: 06/30/19 05:55 Dose: 1 gm Documented by: Admin: 06/29/19 23:35 Dose: 1 gm Documented by: Admin: 06/29/19 17:43 Dose: 1 gm Documented by: Admin: 06/29/19 12:17 Dose: 1 gm Documented by: Admin: 06/29/19 05:23 Dose: 1 gm Documented by: Admin: 06/28/19 23:05 Dose: 1 gm Documented by: Admin: 06/28/19 18:08 Dose: 1 gm Documented by: ARDEN Shift Summary 07/01/19 04:13 Shift Summary by Junito Ramirez Pt has rested well tonight around care. He is up (I) - voiding QS into toilet- no BM again this shift. Pt's chronic back pain 2-4/10 through the shift - cueing to re-position in bed helped. No nausea again tonight. Saline lock to his LT F/A - flushed & patent. Wound RT mccain being treated by wound care - dressing - C,D,I. VS - WNL on R.A.. He is A&O x4, calm, pleasant, & cooperative. Pt hopes to D/C to home later today. Initialized on 07/01/19 04:13 - END OF NOTE
--- NOTE | 2019-07-01 16:25 | Operative Note ---
DATE OF OPERATION: 06/28/2019 PREOPERATIVE DIAGNOSIS: Upper GI bleeding. POSTOPERATIVE DIAGNOSES: Acute erosive gastritis, multiple gastric and duodenal ulcers. PROCEDURE: Esophagogastroduodenoscopy with CLOtest. SURGEON: Wilson Espitia M.D. FINDINGS: 1. Diffuse inflammation of stomach with multiple gastric erosions and three moderate-sized gastric ulcers, acute severe duodenitis with multiple moderate-sized duodenal ulcers and a single giant crater of the duodenal bulb with hemorrhagic base but no active bleeding. 2. A partial obstruction of the duodenal bulb due to the giant ulcer. 3. The second portion of the duodenum was normal without bleeding. DESCRIPTION OF PROCEDURE: Under general anesthesia, the patient was turned to the left lateral decubitus position. Timeout procedure was carried out as per protocol. The bite block was placed, and the scope was introduced through the bite block into the upper esophagus. The esophageal mucosa appeared to be normal down to the GE junction. Upon entering the stomach, there was noted to be diffuse, acute, [id number] severe erosive gastritis. This became more intense as the fundus was approached. There was some fluid in the stomach, but there was no old blood or fresh blood. The fluid was suctioned. The stomach was maximally dilated. There was more severe inflammation in the prepyloric area, and there were multiple erosions and three moderate-sized gastric ulcers with evidence of healing in the antrum in the immediate pyloric area. The pylorus opened appropriately. There was no channel ulcer. There was moderately severe inflammation of the duodenum, and there were multiple moderate-sized duodenal ulcers with evidence of healing. In the junction between the duodenal bulb and second portion of the duodenum, there was a single giant duodenal ulcer with a hemorrhagic base and an organizing clot but no active bleeding. The ulcer and the surrounding inflammation was so large that it caused partial obstruction of the duodenal bulb. The second portion of the duodenum and third portions of the duodenum were normal. There was no old blood or coffee-ground material in the second and third portions of the duodenum. The scope was pulled back. I elected not to do biopsies of the giant ulcer because of its position and because of its character. Biopsies of the antrum were taken and sent for CLOtest. The stomach was irrigated and air was suctioned. The scope was removed without difficulty. The patient tolerated the procedure well. LCS:shay Job ID: [id number] Doc ID: [id number] Wilson Espitia M.D.
== END 2019-07-01 14:35 | disposition home or self-care (01) ==
LOC: MEDSUR 16:00 → ED 16:00 → MEDSUR 20:10
PROVIDERS: ADMIT Family Medicine Adult Medicine; ATTEND Family Medicine Adult Medicine

== ENCOUNTER 2025-06-23 07:14 | Inpatient (IN) ==
[2025-06-23] MEDS: 0.9 % SODIUM CHLORIDE 1,000 ML IV ONE (08:08)
[2025-06-23 08:38] LABS: Basophils # (Auto) 0.04 K/mcL (0.00-0.30); Basophils % (Auto) 1.1 % (0.0-2.0); Eosinophils # (Auto) 0.12 K/mcL (0.00-0.70); Eosinophils % (Auto) 3.4 % (0.0-7.0); Hematocrit 46.1 % (40.1-51.0); Hemoglobin 16.3 g/dL (13.7-17.5); Lymphocytes # (Auto) 0.60 K/mcL (1.50-4.80); Lymphocytes % (Auto) 17.0 % (15.5-49.0); Mean Corpuscular HGB Conc 35.4 g/dL (31.0-36.0); Monocytes # (Auto) 0.53 K/mcL (0.10-0.90); Monocytes % (Auto) 15.0 % (1.0-12.0); Neutrophils % (Auto) 63.2 % (38.0-78.0); Platelet Count 166 K/mcL (140-440); RBC 4.97 M/mcL (4.63-6.08); WBC 3.5 K/mcL (4.5-11.0)
[2025-06-23 08:49] LABS: ALT/SGPT 33 U/L (<40); AST/SGOT 28 U/L (<40); Albumin 4.4 gm/dL (3.2-5.2); Albumin/Globulin Ratio 1.7 (1.0-2.3); Alkaline Phosphatase 76 U/L (39-117); Anion Gap 11.0 (8.0-16.0); Bilirubin,Total 0.5 mg/dL (0.1-1.0); Blood Urea Nitrogen 12 mg/dL (8-23); Calcium 9.1 mg/dL (8.6-10.4); Carbon Dioxide 27 mmol/L (22-30); Chloride 95 mmol/L (96-108); Globulin 2.6 gm/dL (2.2-3.7); Glucose 107 mg/dL (70-105); Potassium 4.4 mmol/L (3.3-5.1); Sodium 133 mmol/L (133-145)
[2025-06-23 09:01] LABS: INR 0.9 (0.9-1.1); Prothrombin Time 13.2 sec (11.9-14.5)
[2025-06-23] MEDS: SUCRALFATE 1 GM TABLET PO ONE (09:45)
[2025-06-23] MEDS: SUCRALFATE 1 GM/10 ML ORAL.SUSP PO ONE (09:47)
[2025-06-23] MEDS: PANTOPRAZOLE 40 MG VIAL IV ONE (09:47)
[2025-06-23] MEDS ORDERED: IOPAMIDOL 100 ML BOTTLE IV ONE (10:53)
[2025-06-23] MEDS: 0.9 % SODIUM CHLORIDE 1,000 ML IV SCH (16:17)
[2025-06-23] MEDS: ACETAMINOPHEN 1,000 MG/100 ML BAG IV PRN (16:21)
[2025-06-23] MEDS: PANTOPRAZOLE 40 MG VIAL IV SCH (16:21)
[2025-06-23 16:36] LABS: C-Reactive Protein 0.42 mg/dL (0.03-0.80)
[2025-06-23 16:43] LABS: INR 0.9 (0.9-1.1); Prothrombin Time 13.2 sec (11.9-14.5)
[2025-06-23] MEDS: SUCRALFATE 1 GM/10 ML ORAL.SUSP PO SCH (17:32)
[2025-06-23] MEDS: METOCLOPRAMIDE 10 MG/2 ML VIAL IV SCH (18:45)
[2025-06-23] MEDS: ATORVASTATIN 20 MG TABLET PO SCH (21:52)
[2025-06-24 06:34] LABS: Basophils # (Auto) 0.05 K/mcL (0.00-0.30); Basophils % (Auto) 1.3 % (0.0-2.0); Eosinophils # (Auto) 0.19 K/mcL (0.00-0.70); Eosinophils % (Auto) 4.9 % (0.0-7.0); Hematocrit 44.8 % (40.1-51.0); Hemoglobin 15.7 g/dL (13.7-17.5); Lymphocytes # (Auto) 0.64 K/mcL (1.50-4.80); Lymphocytes % (Auto) 16.6 % (15.5-49.0); Mean Corpuscular HGB Conc 35.0 g/dL (31.0-36.0); Monocytes # (Auto) 0.55 K/mcL (0.10-0.90); Monocytes % (Auto) 14.2 % (1.0-12.0); Neutrophils % (Auto) 62.7 % (38.0-78.0); Platelet Count 157 K/mcL (140-440); RBC 4.70 M/mcL (4.63-6.08); WBC 3.9 K/mcL (4.5-11.0)
[2025-06-24 06:53] LABS: ALT/SGPT 28 U/L (<40); AST/SGOT 23 U/L (<40); Albumin 4.0 gm/dL (3.2-5.2); Albumin/Globulin Ratio 1.7 (1.0-2.3); Alkaline Phosphatase 68 U/L (39-117); Anion Gap 8.0 (8.0-16.0); Bilirubin,Direct 0.2 mg/dL (<0.3); Bilirubin,Total 0.5 mg/dL (0.1-1.0); Blood Urea Nitrogen 10 mg/dL (8-23); Calcium 8.9 mg/dL (8.6-10.4); Carbon Dioxide 26 mmol/L (22-30); Chloride 100 mmol/L (96-108); Globulin 2.3 gm/dL (2.2-3.7); Glucose 90 mg/dL (70-105); Phosphorous 2.8 mg/dL (2.5-4.5); Potassium 4.4 mmol/L (3.3-5.1); Sodium 134 mmol/L (133-145); Triglycerides 100 mg/dL (<150); Uric Acid 5.7 mg/dL (2.5-8.0)
[2025-06-24] MEDS: ONDANSETRON 4 MG/2 ML VIAL IV PRN (10:24)
[2025-06-24] MEDS: PEG 3350/NA SULF,BICARB,CL/KCL 4,000 ML ORAL.SOL PO ONE (14:02)
[2025-06-24] MEDS: ATORVASTATIN 20 MG TABLET PO SCH (19:31)
[2025-06-25 06:59] LABS: Basophils # (Auto) 0.03 K/mcL (0.00-0.30); Basophils % (Auto) 0.7 % (0.0-2.0); Eosinophils # (Auto) 0.24 K/mcL (0.00-0.70); Eosinophils % (Auto) 5.5 % (0.0-7.0); Hematocrit 43.3 % (40.1-51.0); Hemoglobin 15.3 g/dL (13.7-17.5); Lymphocytes # (Auto) 0.77 K/mcL (1.50-4.80); Lymphocytes % (Auto) 17.7 % (15.5-49.0); Mean Corpuscular HGB Conc 35.3 g/dL (31.0-36.0); Monocytes # (Auto) 0.63 K/mcL (0.10-0.90); Monocytes % (Auto) 14.5 % (1.0-12.0); Neutrophils % (Auto) 61.6 % (38.0-78.0); Platelet Count 152 K/mcL (140-440); RBC 4.52 M/mcL (4.63-6.08); WBC 4.3 K/mcL (4.5-11.0)
[2025-06-25 07:08] LABS: ALT/SGPT 24 U/L (<40); AST/SGOT 21 U/L (<40); Albumin 3.7 gm/dL (3.2-5.2); Albumin/Globulin Ratio 1.9 (1.0-2.3); Alkaline Phosphatase 65 U/L (39-117); Anion Gap 9.0 (8.0-16.0); Bilirubin,Direct 0.2 mg/dL (<0.3); Bilirubin,Total 0.4 mg/dL (0.1-1.0); Blood Urea Nitrogen 11 mg/dL (8-23); Calcium 8.7 mg/dL (8.6-10.4); Carbon Dioxide 24 mmol/L (22-30); Chloride 101 mmol/L (96-108); Globulin 2.0 gm/dL (2.2-3.7); Glucose 84 mg/dL (70-105); Phosphorous 3.0 mg/dL (2.5-4.5); Potassium 4.2 mmol/L (3.3-5.1); Sodium 134 mmol/L (133-145); Triglycerides 97 mg/dL (<150); Uric Acid 5.6 mg/dL (2.5-8.0)
[2025-06-25] MEDS ORDERED: NON FORMULARY MEDICATION 1 DOSE MISCELL (Turmeric 400 mg Capsule) PO SCH (09:00)
[2025-06-25] MEDS ORDERED: GLYCOPYRROLATE 0.2 MG/ML VIAL IV ONE (10:35)
[2025-06-25] MEDS ORDERED: LIDOCAINE 2% PF 5 ML VIAL IJ ONE (10:35)
[2025-06-25] MEDS ORDERED: PROPOFOL 200 MG/20 ML VIAL IV ONE (10:35)
[2025-06-25] MEDS ORDERED: PHENYLephrine 1 MG/10 ML SYRINGE (ANEST) IV ONE (10:35)
[2025-06-25] MEDS: LOSARTAN 50 MG TABLET PO SCH (11:31)
[2025-06-26 06:09] LABS: Basophils # (Auto) 0.05 K/mcL (0.00-0.30); Basophils % (Auto) 0.7 % (0.0-2.0); Eosinophils # (Auto) 0.23 K/mcL (0.00-0.70); Eosinophils % (Auto) 3.4 % (0.0-7.0); Hematocrit 42.3 % (40.1-51.0); Hemoglobin 15.0 g/dL (13.7-17.5); Lymphocytes # (Auto) 0.77 K/mcL (1.50-4.80); Lymphocytes % (Auto) 11.3 % (15.5-49.0); Mean Corpuscular HGB Conc 35.5 g/dL (31.0-36.0); Monocytes # (Auto) 0.77 K/mcL (0.10-0.90); Monocytes % (Auto) 11.3 % (1.0-12.0); Neutrophils % (Auto) 73.2 % (38.0-78.0); Platelet Count 146 K/mcL (140-440); RBC 4.53 M/mcL (4.63-6.08); WBC 6.8 K/mcL (4.5-11.0)
[2025-06-26 06:30] LABS: ALT/SGPT 26 U/L (<40); AST/SGOT 22 U/L (<40); Albumin 3.7 gm/dL (3.2-5.2); Albumin/Globulin Ratio 1.7 (1.0-2.3); Alkaline Phosphatase 68 U/L (39-117); Anion Gap 8.0 (8.0-16.0); Bilirubin,Direct 0.2 mg/dL (<0.3); Bilirubin,Total 0.4 mg/dL (0.1-1.0); Blood Urea Nitrogen 12 mg/dL (8-23); Calcium 8.7 mg/dL (8.6-10.4); Carbon Dioxide 26 mmol/L (22-30); Chloride 98 mmol/L (96-108); Globulin 2.2 gm/dL (2.2-3.7); Glucose 91 mg/dL (70-105); Phosphorous 2.9 mg/dL (2.5-4.5); Potassium 4.0 mmol/L (3.3-5.1); Sodium 132 mmol/L (133-145); Triglycerides 90 mg/dL (<150); Uric Acid 5.2 mg/dL (2.5-8.0)
[2025-06-26 09:00] VITALS: TEMP 97.5; O2SAT 99
[2025-07-08] MEDS ORDERED: TESTOSTERONE CYPIONATE 200 MG/ML IM SCH (09:00)
== END 2025-06-26 13:40 | disposition home or self-care (01) | DRG 379 ==
LOC: ED 07:14 → MEDSUR 07:14
PROVIDERS: ADMIT Family Medicine Adult Medicine; ATTEND Family Medicine Adult Medicine
PROC: EGDERBE (ICD-10-PCS; 2025-06-25 08:15)